=== PATIENT | male | born 1980 | race Caucasian/White ===

== ENCOUNTER 2022-08-23 10:10 | Emergency (ER) | payer BC, SELFPAY ==
[2022-08-23 10:12] VITALS: BP 151/111; PULSE 109; RESP 18; TEMP 36.6; O2SAT 100; BMI 25.0
--- NOTE | 2022-08-23 10:31 | ED.VIS.LOWEX ---
HPI History of Present Illness Chief Complaint: Lower Extremity Injury Narrative Narrative: Patient denies significant past medical history presents with chainsaw injury to his left lower leg that he sustained yesterday. He is unsure of his last tetanus immunization. While he states that he was using a chainsaw, the chainsaw was in the crotch of the cut, and it slipped. It caught his pant leg and he sustained a laceration distal to his patella that was superficial. However, today he awoke with pain, tenderness, and swelling distal to his laceration. It hurts more when he walks or touches it. He does not recall anything hitting his left lower extremity per se. He denies other injury. He presents for evaluation of the sore, tender swollen area on his left lower leg. PFSH PFS Medical History no medical history Home Medications NK 08/23/22 [History Last Taken Unknown] Allergy/AdvReac Type Severity Reaction Status Date / Time No Known Allergies Allergy Verified 08/23/22 10:11 Family History no significant family his Surgical History no surgical history Social History Smoking Status: Current every day smoker tobacco type: smokeless tobacco ROS ROS ED ROS Narrative Constitutional: No fever, no chills. HEENT: No sore throat. No neck pain. No loss of vision. No rhinorrhea. Cardiovascular: No chest pain. No palpitations. No pedal edema. Respiratory: No cough, no shortness of breath. Abdominal: No abdominal pain. No nausea. No vomiting. Genitourinary: No dysuria. No hematuria. Musculoskeletal: No myalgias. Laceration to the left lower leg/proximal tibia. Swelling and tenderness to left lower leg. Neurologic: No headaches. No dizziness. No lightheadedness. Skin: No rash. No change in color. Psychiatric: No depression. No anxiety. EXAM Physical Exam Narrative Exam Narrative: Afebrile. Vital signs noted. HEENT: Normocephalic. Atraumatic. PERRL, EOMI. Neck soft and supple. No point tenderness or step off. Cardiovascular: Regular rate and rhythm. No murmurs, rubs, or gallops appreciated. Respiratory: No tachypnea. Lungs clear to auscultation bilaterally. Gastrointestinal: Abdomen soft, nontender, with normoactive bowel sounds. No rebound or guarding. Neurological: Awake. Alert. Nonfocal, nonlateralizing. Skin: No rash. Normal color. No pallor. Musculoskeletal: No pedal edema. Full range of motion extremities. Inspection of the proximal tibial area distal to the patella reveals a very superficial, healing laceration/multiple lacerations consistent with chainsaw injury. There is an area distal to this on the anterior tibial surface that is swollen and mildly ecchymotic with tenderness to palpation. He is neurovascular intact distally with palpable dorsalis pedis pulse. Const Vital Signs: 08/23/22 10:12 Temperature 97.8 F Temperature Source Temporal Pulse Rate 109 H Respiratory Rate 18 Blood Pressure 151/111 H Blood Pressure Mean 124 Pulse Ox 100 Oxygen Delivery Method Room Air MDM MDM MDM Narrative Medical decision making narrative: Boostrix was administered intramuscularly. The area on his anterior tibia looks more like a contusion, but the patient cannot recall directly any injury. X-rays were obtained of the left tibia/fibula. My interpretation of his x-ray shows no evidence of acute fracture. There may be mild soft tissue swelling. There is a laceration noted but I do not see that it enters the joint of the knee. At this point in time, I feel he can be discharged safely home with follow-up. His tetanus immunization was updated. Disposition is discharged home in stable condition. Radiography Diagnostic Testing: Clinical Impression(s) from Imaging Studies Tibia/Fibula X-Ray 08/23/22 10:35 IMPRESSION: Soft tissue laceration overlying the medial aspect of the knee joint. No radiopaque foreign body is seen. No bony abnormality is present. Electronically Signed: Papito Salter MD at 10:50 EDT , Discharge Plan Triage Chief Complaint: Lower Extremity Injury Other Complaint: Wound ED Provider: Antonio Rogers Dx/Rx/DC Orders Clinical Impression: Laceration of lower leg, left, Contusion of lower leg, left Instructions: ED Contusion, Lower Extremity, ED Laceration, Old: Not Sutured, ED Laceration Extremity Prescriptions: No Action NK Primary Care Provider: Care Physician,No Primary Referrals: Yulia Breaux MD [Med Staff - [employer]ating [employer] Typist] - 3-5 Days if not improving Disposition Disposition: Home, Self Care
--- NOTE | 2022-08-23 10:35 | RAD_ITS ---
STUDY: X-RAY - LEFT TIBIA AND FIBULA REASON FOR EXAM: Male, 41 years old. Chainsaw injury involving the left lower extremity. TECHNIQUE: 2 view(s) of the tibia and fibula were obtained. COMPARISON: None. FINDINGS: Normal visualized tibia. Normal visualized fibula. Soft tissue laceration along the medial aspect of the soft tissues overlying the knee joint. RAD/Tibia & Fibula 2 Views IMPRESSION: Soft tissue laceration overlying the medial aspect of the knee joint. No radiopaque foreign body is seen. No bony abnormality is present. Electronically Signed: Papito Salter MD at 10:50 EDT ,
[2022-08-23] MEDS: Diphth,Pertuss(Acell),Tet Vac 0.5 ML Vial IM (10:44)
--- NOTE | 2022-08-23 11:09 | CM.ED ---
SW Note Referral Source: Case Find Referral Reason: No Primary Care Physician (PCP) SW reviewed chart and noted that patient has no PCP. SW provided patient with list of [facility] and [facility]ician List for reference. No other issues or concerns voiced at this time. SW remains available for any additional needs. Plan: Provided patient with PCP information Mis SCOTT
== END 2022-08-23 11:46 | disposition home or self-care (01) ==
PROVIDERS: Emergency Provider Emergency Medicine; Visit Provider Emergency Medicine
DX: S81.812A Laceration without foreign body, left lower leg, initial encounter (principal); F17.220 Nicotine dependence, chewing tobacco, uncomplicated; S80.12XA Contusion of left lower leg, initial encounter; W29.3XXA Contact with powered garden and outdoor hand tools and machinery, initial encounter; Z23 Encounter for immunization
CPT/HCPCS: 73590; 90471; 90715; 99282

== ENCOUNTER 2023-08-27 01:25 | Emergency (ER) | payer BC, SELFPAY ==
[2023-08-27 01:26] VITALS: BP 147/100; PULSE 65; RESP 18; TEMP 36.6; O2SAT 98; BMI 28.0
--- NOTE | 2023-08-27 02:00 | RAD_ITS ---
EXAM: XR CHEST, 2 VIEWS CLINICAL INDICATION: chest pain TECHNIQUE: Frontal and lateral views of the chest. COMPARISON: No relevant prior studies available. FINDINGS: LUNGS AND PLEURAL SPACES: Unremarkable. No consolidation or edema. No pneumothorax. No effusion. HEART: Unremarkable. Cardiac silhouette not enlarged. MEDIASTINUM: Central airways and mediastinal contour are unremarkable. BONES/JOINTS: Unremarkable. SOFT TISSUES: Unremarkable. RAD/Chest PA and Lateral IMPRESSION: No radiographic evidence of acute cardiopulmonary disease. Electronically Signed: Zafar Jara MD at 2:33 EDT ,
[2023-08-27] MEDS: Aspirin 325 MG Tablet PO (02:04)
[2023-08-27] MEDS: Ketorolac 30 MG/ML Syringe IV (02:04)
[2023-08-27] MEDS: Orphenadrine 60 MG/2 ML Ampul 30 MG IV (02:04)
[2023-08-27 02:08] VITALS: BP 130/88; PULSE 69; RESP 64; O2SAT 95
[2023-08-27 02:12] LABS: Absolute Lymphocyte Count 3.71 X10^3/uL (0.83-4.51); Absolute Neutrophil Count 2.4 X10^3/uL (2.0-7.7); Basophil# 0.07 X10^3/uL; Eosinophil# 0.23 X10^3/uL; Eosinophils% 3.2 % (0-5); Hematocrit 41.2 % (40-54); Hemoglobin 14.2 g/dL (13.0-16.5); Lymphocyte # 3.71 X10^3/ul (0.83-4.51); Lymphocyte % 52.3 % (19-41); Mean Corp Hgb Conc 34.5 g/dL (32-36); Mean Corpuscular Hgb 31.5 pg (27.0-32.0); Mean Corpuscular Volume 91.4 fL (80-94); Mean Platelet Vol. 9.6 fl (6.2-12.0); Monocyte% 8.5 % (0-10); NRBC Flagged by Analyzer 0 % (0-5); Neutrophil # 2.44 X10^3/uL (2.7-7.7); Neutrophil % 34.3 % (47-70); Platelet Count 226 K/mm3 (150-450); RBC Distribution Width SD 37.2 fl (35.1-43.9); Red Blood Count 4.51 M/mm3 (4.6-6.2); White Blood Count 7.1 K/mm3 (4.4-11.0)
[2023-08-27 02:14] LABS: Anion Gap 6 (5-15); BUN 20 mg/dL (7-18); BUN/Creat Ratio 19.6 RATIO (10-20); Calcium,Total 9.2 mg/dL (8.5-10.1); Chloride 108 mmol/L (98-107); Creatinine, Serum 1.02 mg/dL (0.70-1.30); EST Glomerular Filtration Rate 84 mL/min (>60); Est Glom Filt Rate - Afr Amer 102 mL/min (>60); Estimated Creatinine Clearance 80.39 ml/min; Glucose 103 mg/dL (74-106); Magnesium 2.3 mg/dL (1.6-2.6); Potassium 3.6 mmol/L (3.5-5.1); Sodium Level 140 mmol/L (136-145); Troponin-I HS 6 pg/mL (3.0-78.0)
--- NOTE | 2023-08-27 02:50 | EDS_ITS ---
HPI History of Present Illness Chief Complaint: Chest Pain Informant: patient and spouse/S.O. Narrative Narrative: Patient is a 42-year-old male with no significant past medical history. 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 He denies any excessive activity or trauma. He states he was sitting at home watching TV when he noticed pain in his left upper back region near the left shoulder. He states the pain was persistent and began radiating down his left arm. He states there was no nausea vomiting diaphoresis or shortness of breath associated with this. He states the pain had been constant for approximately 4 to 5 hours and as it was not relieving he did because of concern this could be cardiac in nature so he presents for evaluation. He also denies any recent travel surgery history of DVT/PE. PFSH PFSH Medical History no medical history no medical history Home Medications NK 08/23/22 [History Last Taken Unknown] Allergy/AdvReac Type Severity Reaction Status Date / Time No Known Allergies Allergy Verified 08/27/23 01:29 Family History no significant family his Surgical History no surgical history Social History Smoking Status: Current every day smoker tobacco type: smokeless tobacco ROS ROS ED Constitutional Constitutional ED: Denies chills or fever(s) ENT ENT ED: Denies sore throat Cardiovascular Cardiovascular: Denies chest pain Respiratory/Chest Respiratory/Chest: Denies cough or dyspnea Gastrointestinal Gastrointestinal: Denies abdominal pain, diarrhea, nausea or vomiting Genitourinary Genitourinary ED: Denies dysuria Musculoskeletal Musculoskeletal: Reports other Details: Positive left shoulder/back pain Integumentary Denies Abrasions or rash Neurologic Neurologic: Denies headache(s) Hematologic/Lymphatic Hematologic/Lymphatic: Denies easy bleeding or easy bruising EXAM Physical Exam Const Vital Signs: 08/27/23 01:26 08/27/23 02:08 Temperature 97.9 F Temperature Source Temporal Pulse Rate 65 69 Respiratory Rate 18 64 H Blood Pressure 147/100 H 130/88 H Blood Pressure Mean 115 102 Pulse Ox 98 95 Oxygen Delivery Method Room Air Room Air Positive well nourished and well developed General Appearance ED: well developed HEENT HEENT Narrative: Normocephalic atraumatic Eyes PERRL and EOMs intact bilaterally General Eye ED: Negative for scleral icterus Neck supple Neck Narrative: Negative Spurling sign bilaterally Chest Wall palpation of chest normal Resp normal respiratory effort and clear to auscultation bilaterally Cardio regular rate and regular rhythm Rate: other Other Details: Radial and carotid pulses equal and symmetric GI normal to inspection, nondistended, normoactive bowel sounds, non-tender, non- distended and no masses GI Narrative: No voluntary guarding or rigidity. No pulsatile mass or fluid wave Auscultation: normoactive bowel sounds Palpation: soft Extremity normal to inspection Extremity Narrative: Left upper extremity is neurovascularly intact; AIN/PIN are intact and normal. No obvious bony deformity or joint effusion and negative sulcus sign of the left shoulder. There is reproducible pain along the left scapula that the patient states is similar to the pain he has been experiencing. Negative Homans' sign bilaterally. Neuro oriented x3, CN's II-XII intact bilaterally and no sensory deficits noted Sensorium / Orientation: alert Motor Exam: strength 5/5 throughout Psych mental status grossly normal Skin no rashes or lesions noted MDM MDM MDM Narrative Medical decision making narrative: Patient presented to the ER hypertensive otherwise with stable vitals. He reported pain in the left back/shoulder that radiated down the left arm without nausea vomiting diaphoresis or shortness of breath. His cardiac risk factors are low as well. He also denies any recent travel surgery or hormone use or history of DVT/PE and without pleuritic chest pain tachycardia or hypoxia I do not feel there is a need for D-dimer or CTA. 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 Chest x-ray revealed no acute lung pathology such as pneumonia pneumothorax or pleural effusion. Troponin was normal going against cardiac event. Patient did not have leukocytosis or severe electrolyte abnormality. He was treated with Tor[place] l and Norflex and reported improvement of symptoms. Therefore at this time as cardiac work-up is negative and patient is low risk for cardiovascular disease and has had improvement of pain he will be discharged home and can follow-up on an outpatient basis if symptoms persist or worsen. History & Record Review Discussion w/independent historian: Patient and Significant other Lab Data Attestation: I reviewed the patient's lab results. Labs: Laboratory Results - last 24 hr 08/27/23 01:36 WBC 7.1 RBC 4.51 L Hgb 14.2 Hct 41.2 MCV 91.4 MCH 31.5 MCHC 34.5 RDW Std Deviation 37.2 RDW Coeff of Jaime 11.0 L Plt Count 226 MPV 9.6 Immature Gran % (Auto) 0.700 Neut % (Auto) 34.3 L Lymph % (Auto) 52.3 H [place] % (Auto) 8.5 Eos % (Auto) 3.2 Baso % (Auto) 1.0 Absolute Neuts (auto) 2.4 Absolute Lymphs (auto) 3.71 Nucleated RBC % 0 Sodium 140 Potassium 3.6 Chloride 108 H Carbon Dioxide 26.0 Anion Gap 6 BUN 20 H Creatinine 1.02 Estim Creat Clear Calc 80.39 Est GFR (MDRD) Af Amer 102 Est GFR (MDRD) Non-Af 84 BUN/Creatinine Ratio 19.6 Glucose 103 Calcium 9.2 Magnesium 2.3 Troponin I High Sens 6 Radiography Diagnostic Testing: Clinical Impression(s) from Imaging Studies Chest X-Ray 08/27/23 02:00 IMPRESSION: No radiographic evidence of acute cardiopulmonary disease. Electronically Signed: Zafar Jara MD at 2:33 EDT , Chest x-ray as interpreted by the emergency medicine physician reveals no acute infiltrate pneumothorax pleural effusion or widening the mediastinum Discharge Plan Triage Chief Complaint: Chest Pain ED Provider: Solitario Church Dx/Rx/DC Orders Clinical Impression: Nonspecific chest pain Instructions: ED Chest Pain, Uncertain Cause Prescriptions: No Action NK Primary Care Provider: Care Physician,No Primary Referrals: Care Physician,No Primary [Primary Care Provider] - Activity Restrictions/Additional Instructions: Please return to the ER if you have any further concerns or worsening of symptoms Disposition Disposition: Home, Self Care
[2023-08-27 02:53] VITALS: BP 116/92; PULSE 69; RESP 67; O2SAT 95
== END 2023-08-27 02:58 | disposition home or self-care (01) ==
PROVIDERS: Emergency Provider Emergency Medicine; Visit Provider Emergency Medicine
DX: R07.9 Chest pain, unspecified (principal); F17.290 Nicotine dependence, other tobacco product, uncomplicated
CPT/HCPCS: 71046; 80048; 83735; 84484; 85025; 93005; 96374; 96375; 99283; A4216